=== PATIENT | female | born 1960 | race Hispanic/Latino ===

== ENCOUNTER → 2022-10-11 | Outpatient (CLI) | payer OTHER | END | disposition home or self-care (01) | LOC: RAH 14:12 | PROVIDERS: ATTEND Surgery | DX: D34 Benign neoplasm of thyroid gland (principal); E21.0 Primary hyperparathyroidism | CPT/HCPCS: 78070; A9500 ==

== ENCOUNTER → 2022-10-19 | Outpatient (CLI) | payer OTHER ==
[~2022-10-19] MED LIST: IOHEXOL-350 75 ML VIAL IV ONE
== END | disposition home or self-care (01) ==
LOC: RAH 13:24
PROVIDERS: ATTEND Surgery
DX: E21.4 Other specified disorders of parathyroid gland (principal); E21.0 Primary hyperparathyroidism
CPT/HCPCS: 70492; Q9967